=== PATIENT | female | born 1935 | race Caucasian/White ===

== ENCOUNTER 2023-11-04 07:48 | Emergency (ER) | payer OTHER, MEDICARE ==
[2023-11-04 07:57] VITALS: TEMP 98; BMI 21.2
[2023-11-04 10:03] VITALS: RESP 20
[2023-11-04 10:04] VITALS: BP 102/57; PULSE 72
[2023-11-04 10:27] LABS: HEMATOCRIT 36.7 % (32.4-45.2); HEMOGLOBIN 11.6 G/dL (10.7-15.3); MCH 32.5 pg (25.7-33.7); MCHC 31.7 g/dl (32.0-36.0); MEAN CELL VOLUME 102.5 fl (80-96); MEAN PLT VOLUME 8.4 fl (7.5-11.1); PLATELET COUNT 186.1 10^3/uL (134-434); RBC 3.58 10^6/uL (3.60-5.2); RDW 13.5 % (11.6-15.6); WHITE BLOOD COUNT 7.3 10^3/uL (4.0-10.8)
[2023-11-04 10:50] LABS: ALBUMIN 3.9 g/dl (3.4-5.0); ALK PHOS 53 U/L (45-117); ANION GAP 8 mmol/L (4-13); BILIRUBIN,TOTAL 0.7 mg/dl (0.2-1); CALCIUM 9.2 mg/dl (8.5-10.1); CHLORIDE 107 mmol/L (98-107); CO2 29 mmol/L (21-32); CREATININE 0.9 mg/dl (0.6-1.3); GLUCOSE,RANDOM 116 mg/dl (74-106); POTASSIUM 4.8 mmol/L (3.5-5.1); SGOT/AST 20 U/L (15-37); SGPT/ALT 12 U/L (7-52); SODIUM 144 mmol/L (136-145); TOT PROT 6.1 g/dl (6.4-8.2)
[2023-11-04 11:12] LABS: PLATELET ESTIMATE ADEQUATE
== END 2023-11-04 11:36 | disposition home or self-care (01) ==
LOC: FER 07:48
DX: S22.42XA Multiple fractures of ribs, left side, initial encounter for closed fracture (principal); W22.8XXA Striking against or struck by other objects, initial encounter
CPT/HCPCS: 36415; 71101-TC-LT-FY; 80053; 85027; 99284-25